=== PATIENT | female | born 1965 | race Caucasian/White ===

== ENCOUNTER → 2018-01-08 | Outpatient (CLI) | payer BC ==
[~2018-01-08] MED LIST: ATOR20TA66 PO; ESTR1TAB24 PO; FLAXSEED OIL; LANS15CA PO; OMG1KC; SUCR1TAB23 PO; WRF5T
--- NOTE | 2018-01-08 13:51 | Diagnostic Imaging Report ---
PROCEDURE: US Thyroid. TECHNIQUE: Multiple Real-time grayscale images were obtained of the thyroid in various projections. INDICATION: Goiter. COMPARISON: 06/29/2016. FINDINGS: The right lobe of the thyroid measures 5.4 x 1.4 x 1.5 cm and the left lobe measures 5.1 x 1.4 x 1.5 cm. There does appear to be parenchymal heterogeneity. A hypoechoic nodule in the inferior left lobe with associated calcification measures 1.9 x 0.9 x 1.1 cm, similar to the prior exam. A solid mass in the lower pole of the right lobe measures 1.3 x 1.3 x 1.1 cm compared with 0.8 x 0.8 x 1.0 cm on the prior exam. There is a new nodule in the upper pole of the right lobe measuring approximately 8 mm x 7 mm x 5 mm. The previously noted nodule in the isthmus towards the right lobe is not as well appreciated on today's study. IMPRESSION: Bilateral thyroid nodules. The nodule in the lower pole of the right lobe does appear to be slightly larger when compared with the prior ultrasound from 06/29/2016. Continued followup is recommended. Dictated by: Dictated on workstation # [id number]
== END ==
LOC: RAD 11:46
PROVIDERS: ATTEND Otolaryngology Otolaryngology/Facial Plastic Surgery
DX: E04.2 Nontoxic multinodular goiter (principal)
CPT/HCPCS: 76536

== ENCOUNTER 2018-07-25 14:52 | Outpatient (RCR) | payer BC | END 2018-08-15 09:25 | disposition home or self-care (01) | PROVIDERS: ATTEND Internal Medicine | DX: M54.16 Radiculopathy, lumbar region (principal) ==

== ENCOUNTER → 2018-07-25 | Outpatient (CLI) | payer BC ==
--- NOTE | 2018-07-25 08:04 | Diagnostic Imaging Report ---
PROCEDURE: MRI lumbar spine. TECHNIQUE: Multiplanar, multisequence MRI of the lumbar spine was performed without contrast. INDICATION: Low back pain and left buttock paresthesia. COMPARISON: Comparison is made to study of 09/16/2015. FINDINGS: Lumbar spinal curvature and alignment remain within normal limits. Conus medullaris is unremarkable at the T12-L1 level. T12-L1, L1-L2 and L2-L3 discs are unremarkable in appearance. At L3-L4, there is mild diffuse annular bulging with small annular tear involving the lateral aspect of the disc. This results in slight bilateral neuroforaminal stenosis similar to the previous study. At L4-L5, there is small central annular tear and moderate far lateral disc protrusion which results in busr-[id number] right neuroforaminal stenosis. At the L5-S1 level, there has been development of large left paramedian disc protrusion resulting in high-grade left lateral recess stenosis with mild central spinal stenosis and mild left neuroforaminal stenosis. No marrow signal abnormalities identified. IMPRESSION: Right lateral disc protrusion resulting in [id number] right neuroforaminal stenosis at L4-L5. Left paramedian disc protrusion at L5-S1 results in high-grade left lateral recess stenosis. Dictated by: Dictated on workstation # [id number]
== END ==
LOC: RAD 06:55
PROVIDERS: ATTEND Internal Medicine
DX: M48.07 Spinal stenosis, lumbosacral region (principal); M51.17 Intervertebral disc disorders with radiculopathy, lumbosacral region; M99.73 Connective tissue and disc stenosis of intervertebral foramina of lumbar region
CPT/HCPCS: 72148

== ENCOUNTER 2018-08-15 14:38 | Outpatient (RCR) | payer BC | END 2018-08-19 | disposition home or self-care (01) | PROVIDERS: ATTEND Orthopaedic Surgery Orthopaedic Surgery of the Spine | DX: Z47.89 Encounter for other orthopedic aftercare (principal); M54.5 Low back pain ==

== ENCOUNTER 2018-09-12 13:06 | Outpatient (RCR) | payer BC | END 2018-10-17 10:23 | disposition home or self-care (01) | PROVIDERS: ATTEND Orthopaedic Surgery Orthopaedic Surgery of the Spine | DX: Z47.89 Encounter for other orthopedic aftercare (principal); M54.5 Low back pain ==

== ENCOUNTER → 2018-09-18 | Outpatient (CLI) | payer BC ==
--- NOTE | 2018-09-18 12:29 | Diagnostic Imaging Report ---
PROCEDURE: US Thyroid. TECHNIQUE: Multiple real-time grayscale images were obtained of the thyroid in various projections. INDICATION: Thyroid nodules. COMPARISON: Comparison made with prior examination from 01/08/2018. FINDINGS: The right lobe of thyroid measures 5.6 x 1.4 x 1.5 cm. There is an unchanged hypoechoic nodule in the superior aspect right lobe of the thyroid measuring 0.8 x 0.6 cm. There is a heterogeneous nodule in the inferior aspect of the right lobe of the thyroid measuring 1.5 x 1.1 cm, also essentially unchanged. The left lobe of thyroid measures 4.6 x 1.2 x 1.4 cm. There is a heterogeneous nodule inferior aspect left lobe measuring 1.5 x 1.1 cm. IMPRESSION: Stable bilateral thyroid nodules. Dictated by: Dictated on workstation # [id number]
== END ==
LOC: RAD 07:51
PROVIDERS: ATTEND Otolaryngology Otolaryngology/Facial Plastic Surgery
DX: E04.2 Nontoxic multinodular goiter (principal)
CPT/HCPCS: 76536

== ENCOUNTER 2018-11-14 09:22 | Outpatient (CLI) | payer BC ==
[~2018-11-14] VITALS: Ht 172.7 cm; Wt 86.6 kg
[2018-11-14] MEDS ORDERED: ESTR1TAB24 PO (14:28)
[2018-11-14] MEDS ORDERED: OMEP20TA33 PO (14:28)
[2018-11-14] MEDS ORDERED: ROSU5TAB PO (14:28)
== END 2018-11-14 14:36 | disposition home or self-care (01) ==
LOC: PREOP 09:22
PROVIDERS: ATTEND Obstetrics & Gynecology
DX: Z01.818 Encounter for other preprocedural examination (principal)

== ENCOUNTER 2018-11-16 11:32 | Day surgery (SDC) | payer BC ==
--- NOTE | 2018-11-12 11:56 | HISTORY AND PHYSICAL ---
DATE OF SERVICE: Surgery is scheduled for 11/16/2018. HISTORY OF PRESENT ILLNESS: The patient is a 53-year-old G5, P4 white female with recurrent and persistent postmenopausal bleeding and breakthrough bleeding. Multiple and numerous attempts had been made at control of her bleeding with hormonal manipulation. She has a history of having a DVT while taking oral contraceptives. Therefore, that is not an option. She denies vaginal discharge, but does complain of difficulty with bowel movements including requiring splinting in order to accomplish a bowel movement. She occasionally has stress urinary incontinence. She does feel the sensation of pressure and fullness with something dropping inside the vagina. She has elected to have the clinical definitive surgical treatment of her gynecologic issues in the form of hysterectomy with bilateral salpingo-oophorectomy and anterior and posterior vaginal repairs. Surgery is scheduled for 11/16/2018. ALLERGIES: None. MEDICATIONS: Estradiol 1 mg p.o. daily, Provera 2.5 mg p.o. daily and Crestor. MEDICAL, SOCIAL AND SURGICAL HISTORY: Per her H and P dated 10/05/2018. PHYSICAL EXAMINATION: GENERAL: The patient is a well-developed, well-nourished white female with no acute distress. HEENT: Normal. NECK: Supple, no lymphadenopathy. The patient does have a notable goiter more so on the left than on the right. She has had multiple evaluations of this in the past and it is stable. She is followed by Dr. Aguilera. HEART: Has a regular rhythm with no murmur. CHEST: Clear to auscultation bilaterally. ABDOMEN: Soft, nontender, nondistended. EXTREMITIES: Show no clubbing, cyanosis. There is no Homans sign. PELVIC: Exam was performed on 10/05/2018 showed normal internal and external genitalia with a prominent rectocele, a less prominent cystocele. The patient did have a hypermobile detached urethra. The cervix was normal in size, consistency, contour. The uterus was 6 to 8-week size, somewhat lobular and firm on palpation. She demonstrated first-degree uterine prolapse. Adnexal exam was unremarkable. The rectovaginal exam showed a somewhat attenuated rectovaginal septum. ASSESSMENT AND PLAN: A 53-year-old with symptomatic postmenopausal bleeding and pelvic relaxation. Surgical risks, complication, recovery and followup have been fully discussed including the need for ongoing hormone replacement. The patient is requesting definitive surgical treatment in the form of total laparoscopic hysterectomy with bilateral salpingo-oophorectomy and anterior, posterior vaginal repairs. She accepts the above noted risks and is prepared for the surgery. Job ID: [id number] DocumentID: [id number] Dictated Date: 11/12/2018 11:35:54 [employer] Date: 11/12/2018 11:56:20 Dictated By: SHUBHAM DUBON MD
[~2018-11-16] VITALS: Ht 172.7 cm; Wt 86.6 kg
[~2018-11-16 11:32] MED LIST changes: +OMEP20TA33 PO; +ROSU5TAB PO
[2018-11-16] MEDS ORDERED: ceFAZolin INJECTION 1,000 MG in NS (IVPB) 50 ML IV ONE (11:45)
[2018-11-16] MEDS ORDERED: ESTROGENS CONJ IV 25 MG/5 ML (PREMARIN) VIAL IV ONE (11:45)
--- OUTSIDE RECORDS SUMMARY | 2018-11-16 11:54 | XMS REPORT | Continuity of Care Document ---
Author Author [facility] Organization [facility] Address Unknown Phone Unavailable Allergies Active Description Code Type Severity Reaction Onset Reported/Identified Relationship to Patient Clinical Status Yes NKANo Known Allergies NKA Miscellaneous Allergy Unknown N/A 11/13/2008 Medications There is no data. Problems Date Dx Coded Attending Type Code Diagnosis Diagnosed By 04/20/2012 Ot 789.02 ABDOMINAL PAIN, LEFT UPPER QUADRANT 04/20/2012 Ot V16.0 FAMILY HX-GI MALIGNANCY 04/20/2012 Ot V18.51 FAMILY HISTORY, COLONIC POLYPS 10/03/2014 LING SIMMONS, SHUBHAM Elliott Ot 729.5 10/03/2014 LING SIMMONS, SHUBHAM Elliott Ot V12.51 10/03/2014 LING SIMMONS, SHUBHAM Elliott Ot V12.55 02/17/2015 DERRICK SIMMONS, KIMBER Ramirez Ot 530.81 ESOPHAGEAL REFLUX 02/27/2015 TIERA SIMMONS, JACEK Lawson Ot 786.50 02/27/2015 TIERA SIMMONS, JACEK Lawson Ot V12.55 03/04/2015 Ot 789.01 03/04/2015 Ot V72.84 03/04/2015 ATUL SIMMONS, TAZ P Ot 241.1 03/04/2015 TIERA SIMMONS, JACEK Lawson Ot 789.09 03/04/2015 TIERA SIMMONS, JACEK Lawson Ot 789.06 03/04/2015 TIERA SIMMONS, JACEK Lawson Ot 789.09 03/04/2015 LING SIMMONS, SHUBHAM Elliott Ot 729.5 03/04/2015 LING SIMMONS, SHUBHAM Elliott Ot V12.51 03/04/2015 SHUBHAM DUBON MD Ot V12.55 03/04/2015 TIERA SIMMONS, JACEK Lawson Ot 786.50 03/04/2015 JACEK MOTT MD Ot V12.55 03/04/2015 DERRICK SIMMONS, KIMBER Ramirez Ot V72.84 03/04/2015 Ot 789.01 03/04/2015 Ot V72.84 03/04/2015 ATUL SIMMONS, TAZ P Ot 241.1 03/04/2015 TIERA SIMMONS, JACEK Lawson Ot 789.09 03/04/2015 TIERA SIMMONS, JACEK Lawson Ot 789.06 03/04/2015 TIERA SIMMONS, JACEK Lawson Ot 789.09 03/04/2015 LING SIMMONS, SHUBHAM Elliott Ot 729.5 03/04/2015 LING SIMMONS, SHUBHAM Elliott Ot V12.51 03/04/2015 LING SIMMONS, SHUBHAM Elliott Ot V12.55 03/04/2015 TIERA SIMMONS, JACEK Lawson Ot 786.50 03/04/2015 TIERA SIMMONS, JACEK Lawson Ot V12.55 03/04/2015 DERRICK SIMMONS, KIMBER Ramirez Ot V72.84 03/10/2015 DERRICK SIMMONS, KIMBER Ramirez Ot V72.84 07/07/2015 ATUL SIMMONS, TAZ P Ot 241.1 09/10/2015 Ot 789.01 09/10/2015 Ot V72.84 09/10/2015 ATUL SIMMONS, TAZ P Ot 241.1 09/10/2015 TIERA SIMMONS, JACEK Lawson Ot 789.09 09/10/2015 TIERA SIMMONS, JACEK Lawson Ot 789.06 09/10/2015 TIERA SIMMONS, JACEK Lawson Ot 789.09 09/10/2015 LING SIMMONS, SHUBHAM Elliott Ot 729.5 09/10/2015 LING SIMMONS, SHUBHAM Elilott Ot V12.51 09/10/2015 LING SIMMONS, SHUBHAM Elliott Ot V12.55 09/10/2015 TIERA SIMMONS, JACEK Lawson Ot 786.50 09/10/2015 TIERA SIMMONS, JACEK Lawson Ot V12.55 09/10/2015 DERRICK SIMMONS, KIMBER Ramirez Ot V72.84 09/10/2015 ATUL SIMMONS, TAZ Rowan Ot 241.1 10/01/2015 RUBENS SIMMONS, TAZ Rowan Ot M25.551 10/01/2015 RUBENS SIMMONS, TAZ oRwan Ot M54.16 06/29/2016 Ot 789.01 ABDOMINAL PAIN, RIGHT UPPER QUADRANT 06/29/2016 Ot V72.84 EXAM PRE- OPERATIVE NOS 06/29/2016 ATUL SIMMONS, TAZ Rowan Ot 241.1 NONTOX MULTINODUL GOITER 06/29/2016 JACEK MOTT MD Ot 789.09 ABDOMINAL PAIN, OTHER SPECIFIED SITE 06/29/2016 JACEK MOTT MD Ot 789.06 ABDOMINAL PAIN, EPIGASTRIC 06/29/2016 JACEK MOTT MD Ot 789.09 ABDOMINAL PAIN, OTHER SPECIFIED SITE 06/29/2016 SHUBHAM DUBON MD Ot 729.5 PAIN IN LIMB 06/29/2016 SHUBHAM DUBON MD Ot V12.51 HX-VENOUS THROMBOSIS EMBOLISM 06/29/2016 SHUBHAM DUBON MD Ot V12.55 PERSONAL HISTORY OF PULMONARY EMBOLISM 06/29/2016 JACEK MOTT MD Ot 786.50 CHEST PAIN NOS 06/29/2016 JACEK MOTT MD Ot V12.55 PERSONAL HISTORY OF PULMONARY EMBOLISM 06/29/2016 DERRICK SIMMONS, KIMBER Ramirez Ot V72.84 EXAM PRE-OPERATIVE NOS 06/29/2016 ATUL SIMMONS, TAZ Rowan Ot 241.1 NONTOX MULTINODUL GOITER 06/29/2016 RUBENS SIMMONS, TAZ Rowan Ot M25.551 PAIN IN RIGHT HIP 06/29/2016 RUBENS SIMMONS, TAZ Rowan Ot M54.16 RADICULOPATHY, LUMBAR REGION 06/30/2016 ATUL SIMMONS, TAZ Rowan Ot E04.2 NONTOXIC MULTINODULAR GOITER 07/15/2016 ATUL SIMMONS, TAZ Rowan Ot E04.2 NONTOXIC MULTINODULAR GOITER 02/17/2017 Ot 789.01 ABDOMINAL PAIN, RIGHT UPPER QUADRANT 02/17/2017 Ot V72.84 EXAM PRE- OPERATIVE NOS 02/17/2017 ATUL SIMMONS, TAZ Rowan Ot 241.1 NONTOX MULTINODUL GOITER 02/17/2017 JACEK MOTT MD Ot 789.09 ABDOMINAL PAIN, OTHER SPECIFIED SITE 02/17/2017 JACEK MOTT MD Ot 789.06 ABDOMINAL PAIN, EPIGASTRIC 02/17/2017 JACEK MOTT MD Ot 789.09 ABDOMINAL PAIN, OTHER SPECIFIED SITE 02/17/2017 SHUBHAM DUBON MD Ot 729.5 PAIN IN LIMB 02/17/2017 SHUBHAM DUBON MD Ot V12.51 HX-VENOUS THROMBOSIS EMBOLISM 02/17/2017 SHUBHAM DUBON MD Ot V12.55 PERSONAL HISTORY OF PULMONARY EMBOLISM 02/17/2017 JACEK MOTT MD Ot 786.50 CHEST PAIN NOS 02/17/2017 JACEK MOTT MD Ot V12.55 PERSONAL HISTORY OF PULMONARY EMBOLISM 02/17/2017 KIMBER MEZA MD Ot V72.84 EXAM PRE-OPERATIVE NOS 02/17/2017 ATUL SIMMONS, TAZ Rowan Ot 241.1 NONTOX MULTINODUL GOITER 02/17/2017 TAZ ART MD Ot M25.551 PAIN IN RIGHT HIP 02/17/2017 TAZ ART MD Ot M54.16 RADICULOPATHY, LUMBAR REGION 02/17/2017 TAZ POLLARD MD Ot E04.2 NONTOXIC MULTINODULAR GOITER 12/21/2017 TAZ POLLARD MD Ot 241.1 NONTOX MULTINODUL GOITER 12/21/2017 JACEK MTOT MD Ot 789.09 ABDOMINAL PAIN, OTHER SPECIFIED SITE 12/21/2017 JACEK MOTT MD Ot 789.06 ABDOMINAL PAIN, EPIGASTRIC 12/21/2017 JACEK MOTT MD Ot 789.09 ABDOMINAL PAIN, OTHER SPECIFIED SITE 12/21/2017 SHUBHAM DUBON MD Ot 729.5 PAIN IN LIMB 12/21/2017 SHUBHAM DUBON MD Ot V12.51 HX-VENOUS THROMBOSIS EMBOLISM 12/21/2017 SHUBHAM DUBON MD Ot V12.55 PERSONAL HISTORY OF PULMONARY EMBOLISM 12/21/2017 JACEK MOTT MD Ot 786.50 CHEST PAIN NOS 12/21/2017 JACEK MOTT MD Ot V12.55 PERSONAL HISTORY OF PULMONARY EMBOLISM 12/21/2017 KIMBER MEZA MD Ot V72.84 EXAM PRE-OPERATIVE NOS 12/21/2017 TAZ POLLARD MD Ot 241.1 NONTOX MULTINODUL GOITER 12/21/2017 TAZ ART MD Ot M25.551 PAIN IN RIGHT HIP 12/21/2017 TAZ ART MD P Ot M54.16 RADICULOPATHY, LUMBAR REGION 12/21/2017 ATUL SIMMONS, TAZ Rowan Ot E04.2 NONTOXIC MULTINODULAR GOITER 01/02/2018 ATUL SIMMONS, TAZ Rowan Ot 241.1 NONTOX MULTINODUL GOITER 01/02/2018 TIERA SIMMONS, JACEK Lawson Ot 789.09 ABDOMINAL PAIN, OTHER SPECIFIED SITE 01/02/2018 JACEK MOTT MD Ot 789.06 ABDOMINAL PAIN, EPIGASTRIC 01/02/2018 JACEK MOTT MD Ot 789.09 ABDOMINAL PAIN, OTHER SPECIFIED SITE 01/02/2018 SHUBHAM DUBON MD Ot 729.5 PAIN IN LIMB 01/02/2018 SHUBHAM DUBON MD Ot V12.51 HX-VENOUS THROMBOSIS EMBOLISM 01/02/2018 SHUBHAM DUBON MD Ot V12.55 PERSONAL HISTORY OF PULMONARY EMBOLISM 01/02/2018 JACEK MOTT MD Ot 786.50 CHEST PAIN NOS 01/02/2018 JACEK MOTT MD Ot V12.55 PERSONAL HISTORY OF PULMONARY EMBOLISM 01/02/2018 DERRICK SIMMONS, KIMBER Ramirez Ot V72.84 EXAM PRE-OPERATIVE NOS 01/02/2018 ATUL SIMMONS, TAZ Rowan Ot 241.1 NONTOX MULTINODUL GOITER 01/02/2018 RUBENS SIMMONS, TAZ Rowan Ot M25.551 PAIN IN RIGHT HIP 01/02/2018 TAZ ART MD Ot M54.16 RADICULOPATHY, LUMBAR REGION 01/02/2018 ATUL SIMMONS, TAZ Rowan Ot E04.2 NONTOXIC MULTINODULAR GOITER 01/04/2018 ATUL SIMMONS, TAZ Rowan Ot 241.1 NONTOX MULTINODUL GOITER 01/04/2018 JACEK MOTT MD Ot 789.09 ABDOMINAL PAIN, OTHER SPECIFIED SITE 01/04/2018 JACEK MOTT MD Ot 789.06 ABDOMINAL PAIN, EPIGASTRIC 01/04/2018 JACEK MOTT MD Ot 789.09 ABDOMINAL PAIN, OTHER SPECIFIED SITE 01/04/2018 SHUBHAM DUBON MD Ot 729.5 PAIN IN LIMB 01/04/2018 SHUBHAM DUBON MD Ot V12.51 HX-VENOUS THROMBOSIS EMBOLISM 01/04/2018 SHUBHAM DUBON MD Ot V12.55 PERSONAL HISTORY OF PULMONARY EMBOLISM 01/04/2018 JACEK MOTT MD Ot 786.50 CHEST PAIN NOS 01/04/2018 JACEK MOTT MD Ot V12.55 PERSONAL HISTORY OF PULMONARY EMBOLISM 01/04/2018 KIMBER MEAZ MD Ot V72.84 EXAM PRE-OPERATIVE NOS 01/04/2018 ATUL SIMMONS, TAZ P Ot 241.1 NONTOX MULTINODUL GOITER 01/04/2018 RUBENS SIMMONS, TAZ P Ot M25.551 PAIN IN RIGHT HIP 01/04/2018 RUBENS SIMMONS, TAZ P Ot M54.16 RADICULOPATHY, LUMBAR REGION 01/04/2018 ATUL SIMMONS, TAZ P Ot E04.2 NONTOXIC MULTINODULAR GOITER 01/08/2018 ATUL SIMMONS, TAZ P Ot E04.2 NONTOXIC MULTINODULAR GOITER 01/22/2018 TAZ POLLARD MD P Ot E04.2 NONTOXIC MULTINODULAR GOITER 01/26/2018 TAZ POLLARD MD P Ot E04.2 NONTOXIC MULTINODULAR GOITER 01/29/2018 ATUL SIMMONS, TAZ P Ot E04.2 NONTOXIC MULTINODULAR GOITER 01/30/2018 ATUL SIMMONS, TAZ P Ot 241.1 NONTOX MULTINODUL GOITER 01/30/2018 TIERA SIMMONS, JACEK Lawson Ot 789.09 ABDOMINAL PAIN, OTHER SPECIFIED SITE 01/30/2018 JACEK MOTT MD Ot 789.06 ABDOMINAL PAIN, EPIGASTRIC 01/30/2018 JACEK MOTT MD Ot 789.09 ABDOMINAL PAIN, OTHER SPECIFIED SITE 01/30/2018 SHUBHAM DUBON MD Ot 729.5 PAIN IN LIMB 01/30/2018 SHUBHAM DUBON MD Ot V12.51 HX-VENOUS THROMBOSIS EMBOLISM 01/30/2018 SHUBHAM DUBON MD Ot V12.55 PERSONAL HISTORY OF PULMONARY EMBOLISM 01/30/2018 JACEK MOTT MD Ot 786.50 CHEST PAIN NOS 01/30/2018 JACEK MOTT MD Ot V12.55 PERSONAL HISTORY OF PULMONARY EMBOLISM 01/30/2018 KIMBER MEZA MD Ot V72.84 EXAM PRE-OPERATIVE NOS 01/30/2018 ATUL SIMMONS, TAZ P Ot 241.1 NONTOX MULTINODUL GOITER 01/30/2018 RUBENS SIMMONS, TAZ Rowan Ot M25.551 PAIN IN RIGHT HIP 01/30/2018 RUBENS SIMMONS, TAZ Rowan Ot M54.16 RADICULOPATHY, LUMBAR REGION 01/30/2018 ATUL SIMMONS, TAZ Rowan Ot E04.2 NONTOXIC MULTINODULAR GOITER 01/30/2018 ATUL SIMMONS, TAZ Rowan Ot E04.2 NONTOXIC MULTINODULAR GOITER 07/26/2018 DERRICK SIMMONS, KIMBER Ramirez Ot M48.07 SPINAL STENOSIS, LUMBOSACRAL REGION 07/26/2018 KIMBER MEZA MD Ot M51.17 INTVRT DISC DISORDERS W RADICULOPATHY, L 07/26/2018 KIMBER MEZA MD Ot M99.73 CONN TISS AND DISC STENOS OF INTVRT FORA 08/13/2018 KIMBER MEZA MD Ot M54.16 RADICULOPATHY, LUMBAR REGION 08/15/2018 KIMBER MEZA MD Ot M54.16 RADICULOPATHY, LUMBAR REGION 08/17/2018 SKINNY YIN MD Ot M54.5 LOW BACK PAIN 08/17/2018 SKINNY YIN MD Ot Z47.89 ENCOUNTER FOR OTHER ORTHOPEDIC AFTERCARE 08/19/2018 SKINNY YIN MD Ot M54.5 LOW BACK PAIN 08/19/2018 SKINNY YIN MD Ot Z47.89 ENCOUNTER FOR OTHER ORTHOPEDIC AFTERCARE 08/21/2018 SKINNY YIN MD Ot M54.5 LOW BACK PAIN 08/21/2018 SKINNY YIN MD Ot Z47.89 ENCOUNTER FOR OTHER ORTHOPEDIC AFTERCARE 08/29/2018 KIMBER MEZA MD Ot M48.07 SPINAL STENOSIS, LUMBOSACRAL REGION 08/29/2018 KIMBER MEZA MD Ot M51.17 INTVRT DISC DISORDERS W RADICULOPATHY, L 08/29/2018 KIMBER MEZA MD, Ot M99.73 CONN TISS AND DISC STENOS OF INTVRT FORA 09/26/2018 SKINNY YIN MD, Ot M54.5 LOW BACK PAIN 09/26/2018 SKINNY YIN MD Ot Z47.89 ENCOUNTER FOR OTHER ORTHOPEDIC AFTERCARE Procedures There is no data. Results There is no data. Encounters ACCT No. Visit Date/Time Discharge Status Pt. Type Provider Facility Loc./Unit Complaint [id number] 09/12/2018 13:06:00 10/17/2018 10:23:00 DIS Outpatient SKINNY YIN MD [facility] REHAB POST OP BACK SURGERY [id number] 09/18/2018 07:51:00 09/18/2018 23:59:59 CLS Outpatient TAZ POLLARD MD [facility] RAD NODULES [id number] 08/15/2018 14:38:00 08/19/2018 00:01:00 DIS Outpatient SKINNY YIN MD [facility] REHAB POST OP BACK SURGERY [id number] 07/25/2018 14:52:00 08/15/2018 09:25:00 DIS Outpatient KIMBER MEZA MD [facility] REHAB L LUMBAR RADICULOPATHY [id number] 07/25/2018 06:55:00 07/25/2018 23:59:59 CLS Outpatient KIMBER MEZA MD [facility] RAD LOWER EXTRIMITY RADICULOPATHY [id number] 01/08/2018 11:46:00 01/08/2018 23:59:59 CLS Outpatient TAZ POLLARD MD [facility] RAD GOITER [id number] 06/29/2016 09:08:00 06/29/2016 23:59:59 CLS Outpatient TAZ POLLARD MD [facility] RAD E04.9 [id number] 09/16/2015 15:27:00 09/16/2015 23:59:59 CLS Outpatient TAZ ART MD [facility] RAD LUMBAR RADICULOPATHY , RIGHT HIP PAIN [id number] 06/17/2015 15:09:00 06/17/2015 23:59:59 CLS Outpatient TAZ POLLARD MD [facility] RAD MULTI NODULAR [id number] 02/17/2015 09:05:00 02/17/2015 11:25:00 DIS Outpatient KIMBER MEZA MD [facility] CHEST PAIN WITH DYSPHAGIA [id number] 02/13/2015 07:38:00 02/13/2015 23:59:59 CLS Outpatient KIMBER MEZA MD [facility] PREOP CHEST PAIN WITH DYSPHAGIA [id number] 02/11/2015 10:03:00 02/11/2015 23:59:59 CLS Outpatient JACEK MOTT MD [facility] RAD HX OF PE, CHEST PAIN [id number] 09/19/2014 14:35:00 09/19/2014 23:59:59 CLS Outpatient SHUBHAM DUBON MD [facility] RAD HX OF PE/DVT, POPLITEAL PAIN [id number] 09/10/2014 07:32:00 09/10/2014 23:59:59 CLS Outpatient JACEK MOTT MD [facility] RAD MID EPIGASTRIC LEFT SIDED PAIN [id number] 08/01/2014 08:26:00 08/01/2014 23:59:59 CLS Outpatient JACEK MOTT MD [facility] RAD RIGHT AND LEFT QUAD ABD PAIN [id number] 11/18/2013 09:56:00 11/18/2013 23:59:59 CLS Outpatient TAZ POLLARD MD [facility] RAD MULTI NODULAR GOITER [id number] 11/16/2018 13:00:00 PEN Preadmit SHUBHAM DUBON MD [facility] SDC POST MENOPAUSAL BLEEDING [id number] 04/20/2012 07:32:00 Document Registration [id number] 04/19/2012 07:08:00 Document Registration [id number] 03/16/2012 15:12:00 Document Registration
--- OUTSIDE RECORDS SUMMARY | 2018-11-16 11:54 | XMS REPORT | Clinical Summary ---
Author Author [facility] Organization [facility] Address Unknown Phone Unavailable Care Team Providers Care Eye Specialist Name Role Phone Liz Reaves MD PCP Source Comments Some departments are not documenting in the electronic medical record. If you do not see the information that you expected, contact Release of Information in the Health Information Management department at [phone] for further assistance in locating additional records.[facility] Allergies No Known Allergies Medications End Date Status Medication Sig Dispensed Refills Start Date Active ATORVASTATIN CALCIUM Take 20 mg by 0 (LIPITOR PO) mouth Daily. Active Problems Not on file Social History Date Tobacco Use Types Packs/Day Years Used Never Smoker Alcohol Use Drinks/Week oz/Week Comments Yes rare Sex Assigned at Date Recorded Not on file Industry Job Start Date Occupation Not on file Not on file Not on file Travel End Travel History Travel Start No recent travel history available. Last Filed Vital Signs Time Taken Vital Sign Reading 06/02/2010 3:53 PM CDT Blood Pressure 119/80 06/02/2010 3:53 PM CDT Pulse 64 06/02/2010 2:40 PM CDT Temperature 37 C (98.6 F) - Respiratory Rate - 06/02/2010 3:53 PM CDT Oxygen Saturation 98% - Inhaled Oxygen - Concentration 06/02/2010 2:40 PM CDT Weight 80.7 kg (178 lb) 06/02/2010 2:40 PM CDT Height 172.7 cm (5' 8") 06/02/2010 2:40 PM CDT Body Mass Index 27.06 Plan of Treatment Health Maintenance Due Date Last Done Comments HEPATITIS C SCREENING 1965 PHYSICAL (COMPREHENSIVE) 02/25/1972 EXAM HIV SCREENING 02/25/1980 DTAP/TDAP VACCINES (1 - 1983 Tdap) CERVICAL CANCER SCREENING 1995 BREAST CANCER SCREENING 2005 COLORECTAL CANCER 2015 SCREENING SHINGLES RECOMBINANT 2015 VACCINE (1 of 2) INFLUENZA VACCINE 06/20/2018 Results Not on filefrom Last 3 Months
[2018-11-16] MEDS ORDERED: BUP/EPI 0.5% 1:200,000 (SENSORCAINE) 30 ML VIAL ONE (12:13)
--- NOTE | 2018-11-16 12:27 | Progress Note-Pre Operative ---
Pre-Operative Progress Note H&P Reviewed The H&P was reviewed, patient examined and no changes noted. Date Seen by Provider: Nov 16, 2018 Time Seen by Provider: 12: Date H&P Reviewed: Nov 16, 2018 Time H&P Reviewed: 12: Pre-Operative Diagnosis: Postmenopausal bleeding/menometrorrhagia/uterovaginal prolapse SHUBHAM DUBON MD Nov 16, 2018 12:27
[2018-11-16 12:28] LABS: BASOPHILS % (AUTO) 1 % (0-10); EOSINOPHILS # (AUTO) 0.1 10^3/uL (0.0-0.3); EOSINOPHILS % (AUTO) 1 % (0-10); HEMATOCRIT 46 % (35-52); HEMOGLOBIN 15.2 G/DL (11.5-16.0); LYMPHOCYTES # (AUTO) 1.6 X 10^3 (1.0-4.0); LYMPHOCYTES % (AUTO) 27 % (12-44); MEAN CORPUSCULAR HEMOGLOBIN 30 PG (25-34); MEAN CORPUSCULAR HGB CONC 33 G/DL (32-36); MEAN CORPUSCULAR VOLUME 89 FL (80-99); MEAN PLATELET VOLUME 9.6 FL (7.4-10.4); MONOCYTES # (AUTO) 0.5 X 10^3 (0.0-1.0); MONOCYTES % (AUTO) 8 % (0-12); NEUTROPHILS # (AUTO) 3.8 X 10^3 (1.8-7.8); NEUTROPHILS % (AUTO) 64 % (42-75); PLATELET COUNT 240 10^3/uL (130-400); RED BLOOD COUNT 5.15 10^6/uL (4.35-5.85); RED CELL DISTRIBUTION WIDTH 13.1 % (10.0-14.5)
--- NOTE | 2018-11-16 12:28 | Progress Note-Post Operative ---
Post-Operative Progess Note Surgeon (s)/Bank Representative (s) Surgeon SHUBHAM DUBON MD Bank Representative: Maine Schroeder and Sarina Womack Pre-Operative Diagnosis Postmenopausal bleeding/menometrorrhagia/uterovaginal prolapse Post-Operative Diagnosis Same with abnormal appearing appendix and with pathology pending Procedure & Operative Findings Date of Procedure 11/16/18 Procedure Performed/Findings TLH with BSO, laparoscopic appendectomy, adhesio lysis, and anterior/posterior vaginal repairs with enterocele repair Anesthesia Type GETA Estimated Blood Loss Estimated blood loss (mL): 100-200 cc Specimens/Packing Specimens Removed Uterus fallopian tubes and ovaries and appendix Packing: Kerlix to the vagina SHUBHAM DUBON MD Nov 16, 2018 12:28
[2018-11-16 12:30] VITALS: BP 127/71
[2018-11-16] MEDS ORDERED: ONDANSETRON 4 MG/2 ML (SDV) Z0FRAN IV ONE (12:30)
[2018-11-16] MEDS ORDERED: FAMOTIDINE 20MG/2ML IV (PEPCID) IV ONE (12:30)
[2018-11-16] MEDS: LACTATED RINGERS 1,000 ML IV PRN ×2 (12:40→13:40)
[2018-11-16] MEDS ORDERED: MIDAZOLAM 2 MG/2 ML (VERSED) VIAL ONE (12:50)
[2018-11-16] MEDS ORDERED: fentaNYL INJECTION 100 MCG/2 ML AMP ONE (12:50)
[2018-11-16] MEDS ORDERED: proPOfol 200 MG/20 ML (DIPRIVAN) VIAL IV ONE (12:51)
[2018-11-16] MEDS ORDERED: LIDOCAINE PF 2% 5 ML (XYLOCAINE) VIAL ONE (12:51)
[2018-11-16 13:11] LABS: BUN/CREATININE RATIO 14; CALCIUM 9.2 MG/DL (8.5-10.1); CARBON DIOXIDE 26 MMOL/L (21-32); CHLORIDE 107 MMOL/L (98-107); CREATININE SERUM 0.87 MG/DL (0.60-1.30); GFR ESTIMATED > 60; GLUCOSE 83 MG/DL (70-105); POTASSIUM 3.9 MMOL/L (3.6-5.0); SODIUM 143 MMOL/L (135-145)
[2018-11-16] MEDS ORDERED: ESTRADIOL VAGINAL CREAM 42.5 GM (ESTRACE) VG ONE (14:35)
[2018-11-16] MEDS ORDERED: ONDANSETRON 4 MG/2 ML (SDV) Z0FRAN ONE ×2 (14:55→15:03)
[2018-11-16] MEDS ORDERED: WATER (STERILE) FOR INJECTION 10 ML ONE (14:55)
[2018-11-16] MEDS ORDERED: morphine INJ 10 MG/ML 1ML (SYR OR VIAL) ONE (14:55)
[2018-11-16] MEDS ORDERED: ESTROGENS CONJ IV 25 MG/5 ML (PREMARIN) VIAL ONE (14:56)
[2018-11-16] MEDS ORDERED: DEXAMETHASONE 10 MG/ML (DECADRON) 1 ML VIAL ONE (15:03)
[2018-11-16] MEDS ORDERED: SEVOFLURANE (ULTANE) 15 ML INHAL SOLN ONE (15:03)
[2018-11-16] MEDS ORDERED: ROCURONIUM 10 MG/ML 5 ML SYRINGE IV ONE (15:03)
[2018-11-16] MEDS ORDERED: KETOROLAC 30 MG/ML VIAL ONE ×2 (15:03→16:45)
[2018-11-16] MEDS ORDERED: morphine INJ 10 MG/ML 1ML (SYR OR VIAL) IVP ONE (15:45)
[2018-11-16] MEDS ORDERED: HYDROmorphone 2 MG/ML VIAL (DILAUDID) IV ONE (15:45)
[2018-11-16] MEDS ORDERED: PROMETHAZINE INJ 25 MG/ML (PHENERGAN) AMP IVP ONE (15:45)
[2018-11-16] MEDS ORDERED: ONDANSETRON 4 MG/2 ML (SDV) Z0FRAN IVP PRN ×3 (15:45→16:45)
[2018-11-16] MEDS ORDERED: D5 LR IV SOLUTION 1,000 ML IV SCH (16:38)
[2018-11-16 16:40] VITALS: BP 121/77
[2018-11-16] MEDS ORDERED: ESTROGENS CONJ IV 25 MG/5 ML (PREMARIN) VIAL IVP ONE (16:45)
[2018-11-16] MEDS ORDERED: BENZOCAINE/MENTHOL (DERMOPLAST) 56 ML CAN TP PRN (16:45)
[2018-11-16] MEDS ORDERED: PROMETHAZINE INJ 25 MG/ML (PHENERGAN) AMP IM PRN (16:45)
[2018-11-16] MEDS ORDERED: MEPERIDINE (DEMEROL) INJ 100 MG/ML IM PRN (16:45)
[2018-11-16] MEDS ORDERED: WATER (STERILE) FOR INJ 10 ML BTL INJ ONE (16:45)
[2018-11-16] MEDS ORDERED: oxyCODONE/APAP 5/325MG (PERCOCET 5) TABLET PO PRN (16:45)
[2018-11-16] MEDS: KETOROLAC 30 MG/ML VIAL IVP SCH ×2 (16:50→23:09)
[2018-11-16 20:00] VITALS: BP 112/66
[2018-11-16 23:09] VITALS: BP 111/93
--- NOTE | 2018-11-17 03:28 | OPERATIVE REPORT ---
DATE OF SERVICE: 11/16/2018 PREOPERATIVE DIAGNOSIS: Postmenopausal bleeding, menorrhagia and uterovaginal prolapse. POSTOPERATIVE DIAGNOSIS: Postmenopausal bleeding, menorrhagia and uterovaginal prolapse with appendiceal adhesions and appendiceal induration. OPERATIVE PROCEDURE: Total laparoscopic hysterectomy with bilateral salpingo-oophorectomy, laparoscopic appendectomy and anterior, posterior vaginal repairs with enterocele repair. OPERATIVE DESCRIPTION: With the patient in the supine position under satisfactory general anesthesia, she was prepped and draped in the usual fashion for abdominal and vaginal surgery after being repositioned in the [facility] for robotic-assisted abdominovaginal surgery. A weighted speculum placed in posterior fornix of vagina, cervix exposed and grasped anteriorly with single tooth tenaculum. Uterus sounded to 9 cm with uterine sound. Cervix was then serially dilated with Solo dilators to accommodate a Mariam II manipulator, which was placed in the usual manner using a 6 mm x 8 cm uterine probe and a 35 mm colpotomy ring. Sutures of #1 Vicryl placed at 3 and 9 o'clock position of the cervix to affix the uterus to the manipulator. Ocampo catheter was placed in the urinary bladder. The weighted speculum and tenaculum were removed from the vagina. The patient brought in low dorsal lithotomy position. A 12 mm incision was made 3 cm superior to the umbilicus. Veress needle was placed through that incision into the abdominal cavity. Correct placement was confirmed with a water drop test. The abdomen was insufflated with 2.4 liters of carbon dioxide. Apparently, it was removed and a 12 mm Optiview laparoscopic port was placed. Ports of 8 mm were placed through incisions of those sizes 9 cm lateral to the umbilicus at the level of the umbilicus on each side. All three incision sites were infiltrated with 0.25% Marcaine with epinephrine prior to incision. The patient was placed in Trendelenburg allowing the bowel to spill out of the pelvis. The column was placed over the patient and docked and operative instruments were placed in the lateral ports and I retired to the operating console. On the console using a vessel sealer on the right and a bipolar fenestrated grasper on the left, the pelvis was first examined. Both ovaries were normal as were the fallopian tubes, the ovaries were quite atretic. There was an appendage on the left ovary. It just appeared to be sort of an ectopic portion of the ovarian tissue. Both ureters were freely seemed to peristalse. The uterus was somewhat mottled in appearance and a little bit globular. The appendix was adherent to the pelvic brim and indurated in its distal half to two thirds. Decision was made to go ahead with appendectomy concurrent with the rest of the procedures. There were some adhesions of the sigmoid to the left pelvic brim. These were taken down and left to fully expose the IP ligament on the left. Using the vessel sealer now the right tube and ovary were grasped and elevated. The mesovarium was clamped, cauterized and divided that was continued stepwise across the mesovarium to the round ligament, across the round ligament, across the broad ligament and down on the cardinal ligament. Same procedure on the left eventually allowing for removal of both tubes and ovaries with the uterus, anterior lower uterine segment peritoneum was now exposed and using a monopolar shear in place of the vessel sealer the bladder was carefully dissected down off the lower uterine segment. Colpotomy incision was started at 12 o'clock position and then continued circumferentially until the entire colpotomy was exposed. The uterus with tubes and ovaries still attached and was extracted through the vagina. The vaginal cuff was closed with two sutures V-Loc barbed sutures starting first on the right angle and continuing almost to the left angle then from the left angle finishing the closure, taking care to include the uterine vessel pedicles in the closure of the angle and vaginal cuff. The bladder peritoneum was brought back down on the vaginal cuff with the last couple of sutures on each side. The pelvis was examined for hemostasis, which was complete. Both ureters were of normal caliber and seemed to freely peristalse. Attention was now turned to the appendix. The appendix was grasped and elevated. The adhesions to the pelvic brim and the terminus of the right pericolic gutter were taken free allowing the appendix to be mobilized and elevated. The mesoappendix was quite broad. It was divided transversely with electrocautery taking care to ensure hemostasis from any appendiceal arteries that were encountered. The base of the appendix was exposed and the mesoappendix had been perforated at the base first. With that done, the robotic portion of the procedure was halted. The operative instruments were removed. The column was undocked and removed from the patient and then using a 5 mm conventional laparoscope in the right lateral port the stapler and the umbilical port and a grasper in the left lateral port. The appendix was grasped, elevated. Endo-VIN was placed across the base of the appendix and fired severing it from its attachments. The appendix was then placed in an Endobag brought out through the umbilical port. The stump of the appendix was copiously irrigated and as was the pelvis the irrigant was aspirated out and its stump of the appendix was treated with several drops of Betadine solution. Once again, the ureters were seen to peristalse. There was no remaining abnormal pathology, there was no bleeding. At this point, the procedure was terminated. The operative instruments were removed under direct vision as were the ports. The abdomen was evacuated of the insufflating gas in the process of removing the ports. The skin incisions were closed with emily. The fascia at the supraumbilical incision was closed with grfpov-[id number]-tnuwh suture of 2-0 Vicryl. The patient was now repositioned in dorsal lithotomy position for the anterior and posterior repairs. The Ocampo catheter was removed. The weighted speculum placed in posterior fornix of vagina. The anterior vaginal wall was grasped with two Enrique clamps. Vaginal wall was opened in the midline with Metzenbaum scissors. That opening was continued to approximately a cm to cm and half from the urethral meatus and almost to the apex of the vagina. The vesicovaginal space was developed and then Kirsten plication sutures of 2-0 Vicryl were placed and an additional suture of 2-0 Vicryl were used to reapproximate the endopelvic fascia and plicate the bladder wall, elevating the bladder and lengthening urethra. The redundant anterior vaginal muscularis mucosa was removed sharply. Vaginal was then closed with a running lock suture of 3-0 Vicryl Rapide. Good hemostasis was achieved. Good reapproximation and good support was achieved as well. Posterior repair was now affected by placing Enrique clamps on the perineum and the hymenal ring at 5 and 7 o'clock position. The inverted triangle of skin was removed from the perineal body and upright triangle was removed from the posterior vaginal floor. The rectovaginal space was entered sharply and dissected bluntly to the apex of the vagina where it was explored for an enterocele. There was a small enterocele that was plicated with 2-0 Vicryl pursestring pop-off suture. Obliterating the enterocele, the rectovaginal space was then also obliterated with additional sutures of 2-0 Vicryl. The perineal body was restored with 2-0 Vicryl. Redundant posterior vaginal muscularis mucosa was then removed sharply. Vaginal was closed with a running lock suture of 3-0 Vicryl Rapide. The closure was continued past the hymenal ring and back down perineal body back up subcutaneous to the hymenal ring where the suture was tied. There was some bleeding along the posterior vaginal wall cuff. A nyrwsj-py-jckyj suture of 2-0 Vicryl was placed to affect hemostasis. A second suture was used on a second bleeding site. Now with hemostasis complete, the vagina was filled with Estrace vaginal cream and a pack of Kerlix gauze was placed. Digital rectal exam confirmed no stricture or stenosis of the rectum and no sutures into or through the rectal mucosa. Estimated blood loss for procedure was between 100 to 200 mL. Sponge and needle counts were correct at the end of procedure. The patient tolerated the procedure well and was uneventfully awakened from general anesthesia and transferred to recovery room in stable condition. Job ID: [id number] DocumentID: [id number] Dictated Date: 11/16/2018 15:19:11 Laboratory Cureman Date: 11/17/2018 03:27:01 Dictated By: SHUBHAM DUBON MD [facility]
[2018-11-17 05:30] VITALS: BP 105/61
[2018-11-17 08:01] VITALS: BP 108/56
--- NOTE | 2018-11-17 08:01 | NUR ---
initial shift assessment completed, see interventions for further. lap sites x3, intact. drainage noted @ umbilicus site and Rt. lap site. pt reports voided 100cc urine, states emptied bladder with void. denies pain @ time.
--- NOTE | 2018-11-17 08:05 | NUR ---
Jsoe Caballero here to see pt.
--- NOTE | 2018-11-17 08:45 | Progress Note-Standard ---
Standard Progress Note Progress Notes/Assess & Plan Date Seen by a Provider: Nov 17, 2018 Time Seen by a Provider: 08:44 Progress/Assessment & Plan This patient is without complaint. She is ablating, voiding, tolerating oral intake well has good pain control. Patient denies chest pain, denies shortness breath, denies nausea vomiting, and denies headache. Vital Signs 11/16/18 11/17/18 16:40 05:30 Temp 98.1 Pulse 75 Resp 18 B/P (MAP) 105/61 (76) Pulse Ox 94 O2 Delivery Room Air O2 Flow Rate 2.00 Vital signs are stable. Patient is afebrile. The abdomen is benign. Extreme show no clubbing cyanosis. There is no Homans sign. Assessment and plan postoperative day number 1 doing well. Plan is for discharge home with follow-up in clinic SHUBHAM DUBON MD Nov 17, 2018 08:45
[2018-11-17] MEDS ORDERED: OXYC1TAB87 PO (08:55)
[2018-11-17] MEDS ORDERED: DOCU100C37 PO (08:55)
[2018-11-17] MEDS ORDERED: IBUP-1780 PO (08:55)
--- NOTE | 2018-11-17 08:57 | Discharge Instructions ---
Discharge Instructions Discharge Medications New, Converted or Re-Newed RX: RX on Chart Patient Instructions Patient Instructions: As directed Return to The Hospital For: As directed Activity & Diet Discharge Diet: No Restrictions Activity as Tolerated: No Orders-Post D/C & Referrals Follow Up Appt: Call to make follow up appt. for patient in 4 weeks. Activity: Rest for 24 hours, than as tolerated. Wound Care: May remove Band-Aid tomorrow. Replace as desired. Keep incisions clean and dry. Wash daily with soap and water. Please call in RX to patient pharmacy. Diet: As tolerated-Clear Liquids only if nauseated. Tomorrow, may shower or tub bathe as desired. No driving for 24 hours, no alcoholic beverages for 24 hours, and nothing per vagina (no tampons, douching, or intercourse) for 8 weeks. Patient to return to the clinic as soon as possible for: Temperature greater than 101F, Severe Pain, Foul discharge from incision or vagina, Excessive Bleeding (more than a period). SHUBHAM DUBON MD Nov 17, 2018 08:57
[2018-11-17] MEDS ORDERED: DOCUSATE SODIUM 100 MG (COLACE) CAP PO SCH (09:00)
--- NOTE | 2018-11-17 09:29 | NUR ---
Dismissal instructions given, pt verbalizes understanding. reviewed Rx's and follow up appointments. signature page singed, placed on chart.
--- NOTE | 2018-11-17 09:31 | NUR ---
pt ambulated to private vehicle with @ side. pt stable with no sx's of distress noted.
--- NOTE | 2018-11-17 13:00 | Anesthesia-General Post-Op ---
General Post Op Complications Complications None Follow Up Care/Instructions Patient Instructions None needed. Anesthesia/Patient Condition Patient Condition Patient already discharged. No complications reported per nursing. MALACHI CASTANON CRNA Nov 17, 2018 12:59
[2018-11-17] MEDS ORDERED: IBUPROFEN 800 MG (MOTRIN) TAB PO SCH (18:00)
== END 2018-11-17 09:31 | disposition home or self-care (01) ==
LOC: SDC 11:32 → WS 15:44 → SDC 11-17 09:31
PROVIDERS: ATTEND Obstetrics & Gynecology
DX: N95.0 Postmenopausal bleeding (principal); N80.0 Endometriosis of uterus; N81.5 Vaginal enterocele; K38.0 Hyperplasia of appendix; K21.9 Gastro-esophageal reflux disease without esophagitis; Z86.711 Personal history of pulmonary embolism; Z86.718 Personal history of other venous thrombosis and embolism; Z79.899 Other long term (current) drug therapy
CPT/HCPCS: 36415; 80048; 85025; 86850; 86900; 86901; 87081; 94664

== ENCOUNTER → 2019-09-24 | Outpatient (CLI) | payer BC ==
[~2019-09-24] MED LIST changes: +DOCU100C37 PO; +IBUP-1780 PO; +OXYC1TAB87 PO
--- NOTE | 2019-09-24 10:39 | Diagnostic Imaging Report ---
PROCEDURE: US Thyroid. TECHNIQUE: Multiple real-time grayscale images were obtained of the thyroid in various projections. INDICATION: Thyroid nodule. COMPARISON: Comparison made with prior examination from 09/18/2018. FINDINGS: The right lobe of the thyroid measures 5.4 x 1.4 x 1.7 cm. There is a hypoechoic nodule in the superior aspect of the right lobe measuring 0.8 x 0.6 cm. There is a hypoechoic nodule inferiorly measuring 1.5 x 1.2 cm. The left lobe of the thyroid measures 5.3 x 1.2 x 1.3 cm. There is a heterogeneous nodule inferiorly measuring 1.8 x 0.9 cm. No other discrete solid or cystic masses are appreciated. IMPRESSION: Stable bilateral thyroid nodules. Dictated by: Dictated on workstation # [id number]
== END ==
LOC: RAD 08:38
PROVIDERS: ATTEND Otolaryngology Otolaryngology/Facial Plastic Surgery
DX: E04.2 Nontoxic multinodular goiter (principal)
CPT/HCPCS: 76536

== ENCOUNTER → 2020-04-14 | Outpatient (CLI) | payer BC ==
--- NOTE | 2020-04-14 19:12 | Diagnostic Imaging Report ---
PROCEDURE: US left lower extremity venous. TECHNIQUE: Multiple real-time grayscale images were obtained over the left lower extremity in various projections. Additional duplex Doppler and color Doppler images were also obtained. INDICATION: Left thigh pain. FINDINGS: There is no evidence of a left lower extremity DVT. Left lower extremity deep venous system shows normal compressibility with normal response to augmentation and Valsalva. No fluid collection or mass is detected. IMPRESSION: No evidence of left lower extremity DVT. Dictated by: Dictated on workstation # [id number]
== END ==
LOC: RAD 15:25
PROVIDERS: ATTEND Obstetrics & Gynecology
DX: M79.652 Pain in left thigh (principal); Z86.718 Personal history of other venous thrombosis and embolism

== ENCOUNTER → 2020-11-18 | Outpatient (CLI) | payer BC, OTHER ==
--- NOTE | 2020-11-18 09:04 | Diagnostic Imaging Report ---
PROCEDURE: US Thyroid. TECHNIQUE: Multiple real-time grayscale images were obtained of the thyroid in various projections. INDICATION: Multinodular goiter. Comparison is made with prior thyroid ultrasound from 09/24/2019. A right lower thyroid measures 5.4 x 1.6 x 1.5 cm and left lobe measures 5.1 x 1.0 x 1.6 cm. Isthmus is 5 mm in thickness. Bilateral thyroid nodules are again noted. Nodule in the upper pole right lobe measures 0.8 x 1.3 x 0.7 cm. This compares with 0.8 x 0.4 x 0.67 cm on prior, showing some mild increase in size. Hypoechoic solid nodule lower pole right lobe measures 1.7 x 1.4 x 1.2 cm compared with 1.5 x 1.3 x 1.2 cm on prior. A hypoechoic nodule lower pole left lobe with central calcification measures 1.5 x 0.8 x 0.8 cm compared with 1.8 x 0.7 x 0.9 cm on prior. No new mass is detected. IMPRESSION: Bilateral thyroid nodules. Upper pole nodule in the right is measuring slightly larger and continued follow-up is recommended. Dictated by: Dictated on workstation # [id number]
== END ==
LOC: RAD 08:00
PROVIDERS: ATTEND Otolaryngology Otolaryngology/Facial Plastic Surgery
DX: E04.2 Nontoxic multinodular goiter (principal)
CPT/HCPCS: 76536

== ENCOUNTER → 2021-10-22 | Outpatient (CLI) | payer BC, OTHER ==
--- NOTE | 2021-10-22 17:20 | Diagnostic Imaging Report ---
PROCEDURE: US Thyroid. TECHNIQUE: Multiple real-time grayscale images were obtained of the thyroid in various projections. INDICATION: Multinodular goiter. COMPARISON: 11/18/2020. FINDINGS: The right thyroid lobe measures 5.4 x 1.4 x 1.6 cm in size. Background echotexture is heterogeneous. Vascularity appears normal. There is a hypoechoic circumscribed nodule in the superior thyroid which measures 1.3 x 0.9 x 0.8 cm in size. This is stable since the prior study, previously measuring 1.3 x 0.8 x 0.7 cm. In the inferior right thyroid, there is a larger circumscribed hypoechoic nodule which is mostly solid and measures 2.0 x 1.5 x 1.4 cm, previously 1.7 x 1.4 x 1.2 cm. The isthmus is mildly prominent measuring 5 mm with no nodule seen. The left thyroid lobe measures 5.6 x 1.4 x 1.5 cm in size. It is heterogeneous and vascularity is normal. There is an isoechoic ill-defined nodule with central macrocalcification which measures 1.4 x 0.9 x 0.8 cm, stable since 2016. IMPRESSION: 1. Multiple thyroid nodules. The largest measures 2 cm at the inferior right thyroid and is mildly increased in size since the prior study. This qualifies for FNA if not previously performed. 2. The nodule in the superior right thyroid is stable, recommend follow-up in one year. The nodule in the inferior left thyroid has been stable for five years. Dictated by: Dictated on workstation # [id number]
== END ==
LOC: RAD 15:00
PROVIDERS: ATTEND Otolaryngology Otolaryngology/Facial Plastic Surgery
DX: E04.2 Nontoxic multinodular goiter (principal)
CPT/HCPCS: 76536

== ENCOUNTER → 2021-11-05 | Outpatient (CLI) | payer OTHER ==
[~2021-11-05] VITALS: Ht 172.7 cm; Wt 89.5 kg
[~2021-11-05] MED LIST changes: +LIDOCAINE 1% INJ 20 ML 20 ML VIAL INJ ONE
--- NOTE | 2021-11-05 11:31 | Diagnostic Imaging Report ---
INDICATION: Right thyroid nodule. Patient presents for ultrasound-guided fine needle aspiration and biopsy. Patient was brought to the procedure room and placed on table in the supine position. Ultrasound imaging of the right neck was performed to evaluate appropriate entry site. The right neck was then prepped and draped in the usual sterile fashion. A small amount of 1% lidocaine was utilized for local anesthesia. A total of four passes were made into the dominant primarily solid nodule in the lower pole of the right lobe of the thyroid utilizing 25-gauge needles and fine-needle aspiration technique. A single pass was made with a Rotex needle, and Rotex biopsy was performed. [place] were removed, and hemostasis was obtained. Patient tolerated the procedure well and left the department in stable condition. IMPRESSION: Successful ultrasound-guided fine-needle aspiration and Rotex biopsy of a dominant right lobe thyroid nodule. Pathology results are currently pending. Dictated by: Dictated on workstation # [id number]
== END ==
LOC: RAD 10:00
PROVIDERS: ATTEND Otolaryngology Otolaryngology/Facial Plastic Surgery
DX: E04.1 Nontoxic single thyroid nodule (principal)
CPT/HCPCS: 10005

== ENCOUNTER → 2022-08-25 | Outpatient (CLI) | payer OTHER ==
[~2022-08-25] MED LIST changes: -LIDOCAINE 1% INJ 20 ML 20 ML VIAL INJ ONE
--- NOTE | 2022-08-25 13:31 | Diagnostic Imaging Report ---
PROCEDURE: US Thyroid. TECHNIQUE: Multiple real-time grayscale images were obtained of the thyroid in various projections. INDICATION: Thyroid nodule COMPARED with most recent exam 10/22/2021. Right thyroid lobe measured 4.9 x 1.8 x 1.7 cm, unchanged in size. It is diffusely heterogeneous in terms of its echotexture. Dominant lower pole mass measures 1.6 x 1.4 x 1.7 cm, previously 2 cm in maximal dimension and having been biopsied in the interim. It does show an increased intralesional cystic component but it remains predominantly solid. It had no calcifications, it is well-defined. A second small 9 mm hypoechoic nodule in the upper pole is stable. Left thyroid lobe 5.5 x 1.3 x 1.5 cm, remains heterogeneous in its echotexture and shows a hypoechoic nodule measuring about 1 cm with coarse internal curvilinear calcifications. This measured 1.4 cm on prior. No new dominant mass. Heterogeneous parenchyma diffusely redemonstrated and likely there are additional tiny nodules dispersed throughout both lobes, unchanged. IMPRESSION: The dominant mass in both thyroid lobes have decreased in the interim and the mass on the right has previously been biopsied and showed reduction in size with increased cystic composition. No adverse development. No suspicious finding. Dictated by: Dictated on workstation # [id number]
== END ==
LOC: RAD 08:00
PROVIDERS: ATTEND Otolaryngology Otolaryngology/Facial Plastic Surgery
DX: E04.2 Nontoxic multinodular goiter (principal)
CPT/HCPCS: 76536

== ENCOUNTER 2022-12-28 06:15 | Outpatient (CLI) | payer OTHER ==
[~2022-12-28] VITALS: Ht 172.7 cm; Wt 92.5 kg
[2022-12-28] MEDS ORDERED: FAMO-119 PO (12:59)
== END 2022-12-28 13:01 ==
LOC: PREOP 06:15
PROVIDERS: ATTEND Internal Medicine
DX: Z01.818 Encounter for other preprocedural examination (principal)

== ENCOUNTER 2023-10-20 07:20 | Outpatient (CLI) | payer BC ==
[~2023-10-20] VITALS: Ht 172.7 cm; Wt 91.5 kg
[~2023-10-20 07:20] MED LIST changes: +FAMO-119 PO
== END 2023-10-23 10:58 | disposition home or self-care (01) ==
LOC: PREOP 07:20
PROVIDERS: ATTEND Internal Medicine
DX: Z01.818 Encounter for other preprocedural examination (principal)